=== PATIENT | female | born 1995 | race Caucasian/White ===

== ENCOUNTER 2018-01-20 15:44 | Outpatient (CLI) | payer OTHER, MEDICAID ==
--- NOTE | 2018-01-20 16:28 | Non Stress Test Report ---
Non Stress Test Datetime Report Generated by CPN: 01/20/2018 16:27 DEMOGRAPHIC EGA NST: 40.5 INDICATION Indication for Study: Ordered by Provider MONITORING Monitor Explained: Monitor Explained; Test Explained; Patient Verbalized Understanding Time on Monitor: 01/20/2018 15:59 Time off Monitor: 01/20/2018 16:18 NST Duration: 19 NST INTERVENTIONS NST Interventions: PO Hydration; Meal Given Physician Notified NST: PYovani Soto, CNM BABY A: [id number] BABY A Movement : Present Contraction Frequency : 0 FHR Baseline : 135 Accelerations : 15X15 Decelerations : None Variability : Moderate 6-25bpm NST Review: Meets Criteria for Reactive NST NST Review and Verified By : JESISCA Duke Results: Reactive NST COMMENTS NST Comments: Provider on unit, reviewed strip, d/c order received. NST REPORT Report Trigger: Send Report
== END 2018-01-20 16:29 | disposition home or self-care (01) ==
LOC: LC 15:44
PROVIDERS: ATTEND Obstetrics & Gynecology
PROC: 4A1HXCZ Monitoring of Products of Conception, Cardiac Rate, External Approach (ICD-10-PCS; principal; 2018-01-20)
DX: O48.0 Post-term pregnancy (principal); Z3A.40 40 weeks gestation of pregnancy
CPT/HCPCS: 59025

== ENCOUNTER 2018-01-21 16:07 | Inpatient (IN) | payer OTHER, MEDICAID ==
[2018-01-23] MEDS ORDERED: RINGERS SOLUTION,LACTATED 300 ML IV ONE (06:22)
[2018-01-23] MEDS ORDERED: OXYTOCIN/NORMAL SALINE 20 UNIT/1,000 ML RTUINJ IV PRN ×2 (06:22→18:02)
[2018-01-23] MEDS: RINGERS SOLUTION,LACTATED 1,000 ML IV PRN ×3 (07:03→11:09)
[2018-01-23 07:08] LABS: APPEARANCE,URINE SLIGHTLY-CLOUDY; BILIRUBIN,URINE NEGATIVE (NEGATIVE); COLOR,URINE YELLOW; GLUCOSE, URINE NEGATIVE (NEGATIVE); KETONES,URINE NEGATIVE (NEGATIVE); LEUKOCYTE ESTERASE,URINE TRACE (NEGATIVE); NITRITE,URINE NEGATIVE (NEGATIVE); PROTEIN,URINE NEGATIVE (NEGATIVE); URINE SPECIFIC GRAVITY 1.009; UROBILINOGEN,URINE NEGATIVE mg/dL (<2.0)
[2018-01-23] MEDS ORDERED: OXYTOCIN/NORMAL SALINE 0 UNIT/0 ML RTUINJ ONE (07:28)
[2018-01-23 07:39] LABS: URINE AMPHETAMINES SCREEN NEGATIVE; URINE BARBITURATES SCREEN NEGATIVE; URINE BENZODIAZEPINES SCREEN NEGATIVE; URINE COCAINE SCREEN NEGATIVE; URINE MARIJUANA (THC) SCREEN NEGATIVE; URINE METHADONE SCREEN NEGATIVE; URINE PHENCYCLIDINE SCREEN NEGATIVE
[2018-01-23 08:19] LABS: ABSOLUTE EOSINOPHILS # (AUTO) 0.1 10^3/uL (0.0-0.6); ABSOLUTE LYMPHOCYTES (AUTO) 2.1 10^3/uL (0.5-4.7); ABSOLUTE MONOCYTES (AUTO) 0.5 10^3/uL (0.1-1.4); BASOPHILS % (AUTO) 0.2 % (0-2); EOSINOPHILS % (AUTO) 1.2 % (0-6); HEMATOCRIT 34.7 % (36.0-47.0); LYMPHOCYTES % (AUTO) 21.3 % (13-45); MEAN CORPUSCULAR HEMOGLOBIN 28.9 pg (27.0-33.4); MEAN CORPUSCULAR HGB CONC 34.5 g/dL (32.0-36.0); MEAN CORPUSCULAR VOLUME 84 fl (80-97); MONOCYTES % (AUTO) 5.6 % (3-13); PLATELET COUNT 153 10^3/uL (150-450); RED BLOOD COUNT 4.15 10^6/uL (3.72-5.28); RED CELL DISTRIBUTION WIDTH 13.3 % (11.5-14.0); SEGMENTED NEUTROPHILS % (AUTO) 71.7 % (42-78); TOTAL CELLS COUNTED % (AUTO) 100 %; WHITE BLOOD COUNT 9.8 10^3/uL (4.0-10.5)
[2018-01-23] MEDS ORDERED: PHENYLEPHRINE HCL INJ/PF 10 MG/1 ML SDV ONE ×2 (10:55→13:36)
[2018-01-23] MEDS ORDERED: EPHEDRINE SULFATE INJ 50 MG/1 ML AMPULE ONE ×2 (10:55→13:36)
[2018-01-23] MEDS ORDERED: FENTANYL CITRATE INJ/PF 100 MCG/2 ML AMPUL ONE (10:55)
[2018-01-23] MEDS ORDERED: FENTANYL/BUPIVACAINE/NS/PF 300 MCG/150 ML RTUINJ EPI ONE (10:56)
[2018-01-23] MEDS ORDERED: BUPIVACAINE HCL 0.25 % INJ/PF (2.5 MG/1 ML) 30 ML VIAL ONE (10:56)
[2018-01-23] MEDS ORDERED: ONDANSETRON HCL INJ/PF 4 MG/2 ML SDV ONE ×3 (11:01→15:33)
[2018-01-23] MEDS ORDERED: LIDOCAINE 1.5%/EPINEPHRINE INJ-PF 30 ML SDV ONE (11:11)
[2018-01-23] MEDS ORDERED: ONDANSETRON HCL INJ/PF 4 MG/2 ML SDV IV ONE ×3 (11:26→16:00)
--- NOTE | 2018-01-23 12:02 | Admission Physical ---
Datetime Report Generated by CPN: 01/23/2018 12:01 CURRENT ADMISSION Chief Complaint: Scheduled Induction of Labor Indication for Induction: Post Dates Admit Impression : Term, Intrauterine ; No Active Labor; Intact Membranes; Induction of Labor Admit Plan: Admit to Unit; Initiate Labor Induction Protocol ALLERGIES Medication Allergies: Yes Medication Allergies: cefaclor (01/23/2018) Latex: No Latex Allergies OBSTETRICAL HISTORY EDC: 01/15/2018 00:00 : 1 Para: 0 Term: 0 : 0 SAB: 0 IAB: 0 Ectopic: 0 Livin Cesareans: 0 VBACs: 0 Multiple Births: 0 Gestational Diabetes: No Rh Sensitization: No Incompetent Cervix: No LON: No Infertility: No ART Treatment: No Uterine Anomaly: No IUGR: No Hx Previous C/S: No Macrosomia: No Hx Loss/Stillborn: No PIH: No Hx : No Placenta Previa/Abruption: No Depression/PP Depression: No PTL/PROM: No Post Hemorrhage: No Current Procedures: None Obstetrical History Comments: G1: current SEE RECORDS Alcohol: No Marijuana : No Cocaine: No Other Illicit Drugs: No Cigarettes: Never Smoker. [id number] MEDICAL HISTORY Diabetes: No Blood Transfusion: No Pulmonary Disease (Asthma, TB): No Breast Disease: No Hypertension: No Health Unit Clerk Surgery: No Heart Disease: No Hosp/Surgery: No Autoimmune Disorder: No Anesthetic Complications: No Kidney Disease: No Abnormal Pap Smear: No Neuro/Epilepsy: No Psychiatric Disorders: No Other Medical Diseases: No Hepatitis/Liver Disease: No Significant Family History: No Varicosities/Phlebitis: No Trauma/Violence : No Thyroid Dysfunction: No Medical History Comments: poss hidradinitis type abcess in arimpits and groin in preg got a derm referral INFECTIOUS HISTORY Gonorrhea: No Genital Herpes: No Chlamydia: No Tuberculosis: No Syphilis: No Hepatitis: No HIV/AIDS Exposure: No Rash or Viral Illness: No HPV: No PHYSICAL EXAM General: Normal HEENT: Normal Neurologic: Normal Thyroid: Deferred Heart: Normal Lungs: Normal Breast: Deferred Back: Normal Abdomen: Normal Genitourinary Exam: Normal Extremities: Normal DTRs: Normal Pelvic Type: Adequate Physical Exam Comments: Vulvar and axillary folliculitis - c/w hydradinitis suprativa. No e/o HSV lesions. Vital Signs: Reviewed VAGINAL EXAM Dilatation: 3-4 Effacement: 80 Station: -2 Contraction Comments: rare MEMBRANES Membranes: Intact FETUS A EGA: 41.1 Monitoring: External US FHR- Baseline: 135 Variability: Moderate 6-25bpm Accelerations: 15X15 Decelerations: None FHR Category: Category I Presentation: Vertex Admit Comment: 22yo at 41+1ega presents for IOL (was supposed to be induced on Wednesday but delayed due to staffing). Patient had a reactive NST on Wednesday and r/b/a reviewed and patient desired to delay IOL to Wednesday (offered Sat am IOL if available). Pt has a history of HSV titers positive - however has never had an outbreak and does not have one currently. Pt however has been taking prophylaxis with valacyclovir in case. GBS negative. Pt's father CF carrier - patient is neg for CF. Pt has a 1/2 brother (mom's side) with T18 - negative Carlos. Rh negative - received Rhogam in . No change in cervix since wednesday. Will begin pitocin for IOL. Pt desires epidural at some point for pain control. Anticipate . R/B/A IOl reviewed. [facility] 5#16oz on 12/22/2017 PLANS FOR LABOR AND DELIVERY Labor and Delivery: None Pain Management: Epidural Feeding Preference: Breast Benefit of Breast Feed Discussed: Yes Circumcision: N/A INFORMED CONSENT Informed Consent Obtained: Vaginal Delivery; Induction of Labor; Risks, Benefits and Alternatives Discussed Signature: with User ID: [email or web address]
--- NOTE | 2018-01-23 12:04 | L&D Progress Notes ---
PROGRESS NOTES Datetime Report Generated by CPN: 01/23/2018 12:04 PROGRESS NOTE Impression: Normal Progression of Labor; Reassuring Heart Rate; Rupture of Membranes Procedures: Artificial ROM; Sterile Vag Exam Plan: Continue Present Management; Induction; Anesthesia Consult Informed Consent Obtained: Vaginal Delivery; Induction of Labor; Risks, Benefits and Alternatives Discussed Informed Consent Obtained: Vaginal Delivery; Induction of Labor; Risks, Benefits and Alternatives Discussed Comment: Bulging bag. Pt with increased pain and desires epidural. Anesthesia consult placed. AROM with clear fluid noted. Continue with IOL. Anticipate . VAGINAL EXAM Dilatation: 3-4 Dilatation: 3 Effacement: 80 Effacement: 80 Station: -2 Station: -2 Contractions: q 3 Contractions: rare MEMBRANES Membranes: Ruptured Membranes: Intact Amniotic Fluid Color: Clear FETUS A FHR - Baseline: 135 Monitoring: External US Variability: Moderate 6-25bpm Accelerations: 15X15 Decelerations: None FHR Category: Category I Presentation: Vertex SIGNATURE SIGNATURE: [id number];[id number];[id number] SIGNATURE: [id number];[id number] SIGNATURE: [id number] SIGNATURE: [id number] Signature: with User ID: [email or web address]
[2018-01-23] MEDS ORDERED: MISOPROSTOL 0.2 MG TABLET ONE (16:31)
[2018-01-23] MEDS ORDERED: LIDOCAINE 1% INJ-PF (10 MG/ML) 30 ML SDV ONE (16:32)
[2018-01-23] MEDS ORDERED: OXYTOCIN/NORMAL SALINE 20 UNIT/1,000 ML RTUINJ ONE (16:32)
[2018-01-23] MEDS ORDERED: PROMETHAZINE HCL INJ 25 MG/1 ML VIAL IV PRN (18:02)
[2018-01-23] MEDS ORDERED: DIBUCAINE 1% OINTMENT 28 GM TP PRN (18:02)
[2018-01-23] MEDS ORDERED: PROMETHAZINE HCL 25 MG TABLET PO PRN (18:02)
[2018-01-23] MEDS ORDERED: ACETAMINOPHEN WITH CODEINE #3 TABLET PO PRN (18:02)
[2018-01-23] MEDS ORDERED: ACETAMINOPHEN 325 MG TABLET PO PRN (18:02)
[2018-01-23] MEDS ORDERED: MAGNESIUM HYDROXIDE SUSP 30 ML UDCUP PO PRN (18:02)
[2018-01-23] MEDS ORDERED: GLYCERIN/WITCH HAZEL LEAF 1 EACH MED..PAD TP PRN (18:02)
[2018-01-23] MEDS ORDERED: DIPH/PERTUSS(ACELL)/TETANUS VAC/PF 0.5 ML SYR (>=10YO) IM PRN (18:02)
[2018-01-23] MEDS ORDERED: NA PHOS,M-B/NA PHOS,DI-BA (ADULT) 133 ML ENEMA PR PRN (18:02)
[2018-01-23] MEDS ORDERED: ZOLPIDEM TARTRATE 5 MG TABLET PO PRN (18:02)
[2018-01-23] MEDS ORDERED: MEASLES,MUMPS&RUBELLA VACC/PF 0.5 ML VIAL SUBCUT PRN (18:02)
[2018-01-23] MEDS ORDERED: PROMETHAZINE HCL 25 MG SUPP.RECT PR PRN (18:02)
[2018-01-23] MEDS ORDERED: BENZOCAINE/MENTHOL AEROSOL SPRAY 56 ML TOP PRN (18:02)
[2018-01-23] MEDS ORDERED: PSEUDOEPHEDRINE HCL 30 MG TABLET PO PRN (18:02)
[2018-01-23] MEDS ORDERED: DIPHENHYDRAMINE HCL 25 MG CAPSULE PO PRN (18:02)
[2018-01-23] MEDS ORDERED: IBUPROFEN 800 MG TABLET ONE (19:54)
[2018-01-23] MEDS ORDERED: BENZOCAINE/MENTHOL AEROSOL SPRAY 56 ML ONE (19:54)
[2018-01-23] MEDS: IBUPROFEN 800 MG TABLET PO SCH (20:03)
--- NOTE | 2018-01-23 21:06 | Delivery Summary ---
Del Sum A-C Datetime Report Generated by CPN: 01/23/2018 21:05 DELIVERY PERSONNEL DELIVERY PERSONNEL: [id number] Delivery Doctor:: Kathleen Matias MD Anesthesiologist:: Meli Winters MD Labor and Delivery Nurse:: Nadia Palencia RNcity editor Nurse:: Ayesha Dougherty RN Diabetic Educator/FOOTBALL COACH: Shikha King, DETECTIVE HOMICIDE [place] MATERNAL INFORMATION Delivery Anesthesia: Epidural Medications After Delivery: Pitocin Drip 20 Units/1000ml NSS Estimated Blood Loss (ml): 157 Maternal Complications: None Provider Comments: VFI delivered in JORGE presentation. Tight nuchal cord delivered through. Terminal meconium noted. Shoulders and body delivered without difficulty. Cord doubly clamped and cut and infant to maternal abdomen for NRP. Placent delivered spontaneously intact. FF at U. lacerations repaired for hemostasis. Good hemostasis noted. Mother and baby stable upon the provider leaving the room. LABOR SUMMARY EDC: 01/15/2018 00:00 No. Babies in Womb: 1 Attempted: No Labor Anesthesia: Epidural LABOR INFORMATION Reason for Induction: Post Dates Onset of Labor: 01/23/2018 12:04 Complete Dilatation: 01/23/2018 16:41 Oxytocin: Induction Group B Beta Strep: Negative Antibiotics # of Doses: n/a Antibiotics Time of Last Dose: n/a Steroids Given: None Reason Steroids Not Administered: Not Applicable MEMBRANES Membranes Rupture Method: Artificial Rupture of Membranes: 01/23/2018 10:51 Length of Rupture (hr): 6.83 Amniotic Fluid Color: Clear Amniotic Fluid Amount: Small Amniotic Fluid Odor: Normal STAGES OF LABOR Stage 1 hr: 4 Stage 1 min: 37 Stage 2 hr: 1 Stage 2 min: 0 Stage 3 hr: 0 Stage 3 min: 3 Total Time in Labor hr: 5 Total Time in Labor min: 40 VAGINAL DELIVERY Episiotomy: None Laceration #1: Vaginal Laceration Extension #1: First Degree Laceration Repair: Yes Laceration Repair Note: 1st degree midline and periclitoral laceration repaired for hemostasis. Sponge Count Correct: Yes Sharps Count Correct: Yes CSECTION DELIVERY Primary Indication: N/A Secondary Indication: N/A CSection Incidence: N/A Labor: N/A Elective: N/A CSection Incision: N/A BABY A INFORMATION Delivery Date/Time: 01/23/2018 17:41 Method of Delivery: Vaginal Born in Route : No : N/A Forceps: N/A (Annotations: Data stored by CPN on behalf of user) Vacuum Extraction: N/A (Annotations: Data stored by [facility] on behalf of user) Shoulder Dystocia : No PRESENTATION/POSITION BABY A Presentation: Cephalic Cephalic Presentation: Vertex (Annotations: Data stored by [facility] on behalf of user) Vertex Position: Left Occipital Anterior Breech Presentation: N/A PLACENTA INFORMATION BABY A Placenta Delivery Time : 01/23/2018 17:44 Placenta Method of Delivery: Spontaneous Placenta Status: Delivered SCORES BABY A Heart Rate 1 min: >100 bpm Resp Effort 1 min: Good Cry Reflex Irritability 1 min: Cough or Sneeze or Pulls Away Muscle Tone 1 min: Active Motion Color 1 min: Blue/Pale Resuscitation Effort 1 min: Tactile Stimulation SCORE 1 MIN: 8 Heart Rate 5 min: >100 bpm Resp Effort 5 min: Good Cry Reflex Irritability 5 min: Cough or Sneeze or Pulls Away Muscle Tone 5 min: Active Motion Color 5 min: Body [place], Extremities Blue Resuscitation Effort 5 min: N/A SCORE 5 MIN: 9 INFANT INFORMATION BABY A Gestational Age at Delivery: 41.1 Gestational Status: Late Term- 41- 41.6 Weeks Infant Outcome : Liveborn (Annotations: Data stored by [facility] on behalf of user) Condition : Stable Infant Sex: Female IDENTIFICATION BABY A Infant Verification Date/Time: 01/23/2018 18:23 ID Band Number: [id number] Mother's Name Verified: Yes Infant RN Verifying : Mónica Moreira JESSICA Additional Verifying Personnel: Ishaan Palencia RN WEIGHT/LENGTH BABY A Birthweight (gm): 3070 Infant Weight (lb): 6 Weight (oz): 12 Length (in): 20.50 Infant Length (cm): 52.07 CORD INFORMATION BABY A No. Cord Vessels: 3 (Annotations: Data stored by [facility] on behalf of user) Nuchal Cord : Around Neck x1, Tight Cord Blood Taken: Yes-For Eval (Mom's Blood Type - or O+) Infant Suction: Mouth ASSESSMENT BABY A Infant Complications: Multiple Variable Decels Infant Complications- Other: terminal meconium Physical Findings at Delivery: Caput Succedaneum Skin to Skin: Yes Skin to Skin Time (min): 30 [employer] Dean/ALS Called : No Care By: Kenisha Dougherty RN Transferred To: Remains with Mother BABY B INFORMATION : N/A SIGNATURES Signature: with User ID: [email or web address]
[2018-01-24] MEDS: ACETAMINOPHEN WITH CODEINE #3 TABLET PO PRN ×2 (02:37→19:14)
[2018-01-24] MEDS: IBUPROFEN 800 MG TABLET PO SCH ×3 (05:14→21:36)
[2018-01-24 08:30] LABS: HEMATOCRIT 22.1 % (36.0-47.0); MEAN CORPUSCULAR HEMOGLOBIN 28.9 pg (27.0-33.4); MEAN CORPUSCULAR HGB CONC 34.5 g/dL (32.0-36.0); MEAN CORPUSCULAR VOLUME 84 fl (80-97); PLATELET COUNT 124 10^3/uL (150-450); RED BLOOD COUNT 2.64 10^6/uL (3.72-5.28); RED CELL DISTRIBUTION WIDTH 13.5 % (11.5-14.0); WHITE BLOOD COUNT 12.9 10^3/uL (4.0-10.5)
[2018-01-24 08:32] LABS: HEMOGLOBIN 7.6 g/dL (12.0-15.5)
[2018-01-24] MEDS: FAMOTIDINE 20 MG TABLET PO SCH ×3 (09:46→21:36)
--- NOTE | 2018-01-24 10:34 | PDOC PROGRESS REPORT ---
Subjective-OB Progress Note for:: 01/24/18 Subjective: Doing well, no c/o, fob in room, baby getting a hearing test, tolerating low hgb , voiding,ambulating Physical Exam (OB) Vital Signs: Temp Pulse Resp BP Pulse Ox 98.4 F 94 17 127/62 H 100 01/24/18 07:51 01/24/18 09:07 01/24/18 07:51 01/24/18 09:07 01/24/18 09:07 Intake & Output 01/23/18 01/24/18 01/25/18 06:59 06:59 06:59 Weight 88 kg - Lochia Lochia Amount: Scant < 10 ml Lochia Color: Rubra/Red - Abdomen Description: Soft, Flat Hernia Present: No Fundal Description: Firm, Midline Fundal Height: u/u - u/2 Objective-Diagnostic Laboratory: 01/24/18 07:24 01/24/18 01/24/18 07:24 07:24 WBC 12.9 H RBC 2.64 L Hgb 7.6 L D Hct 22.1 L MCV 84 MCH 28.9 MCHC 34.5 RDW 13.5 Plt Count 124 L Blood Type B NEGATIVE Assessment and Plan(PN) - Assessment and Plan (1) Obstetrical laceration, first degree Is this a current diagnosis for this admission?: Yes (2) Vaginal delivery Is this a current diagnosis for this admission?: Yes (3) Post term at 41 weeks gestation Is this a current diagnosis for this admission?: Yes - Time Spent with Patient Time with patient: Less than 15 minutes Medications reviewed and adjusted accordingly: Yes
[2018-01-24] MEDS: PRENATAL VITAMIN W DHA CAPSULE PO SCH (10:38)
[2018-01-24] MEDS: FERROUS SULFATE 325 MG TABLET PO SCH ×2 (10:38→18:29)
[2018-01-24] MEDS: SENNOSIDES/DOCUSATE 8.6-50 MG 1 EACH TABLET PO SCH (10:39)
[2018-01-24] MEDS: DOCUSATE SODIUM 100 MG CAPSULE PO SCH ×2 (10:39→18:29)
[2018-01-25] MEDS: IBUPROFEN 800 MG TABLET PO SCH (07:40)
[2018-01-25 08:58] VITALS: BP 119/69
[2018-01-25] MEDS: DOCUSATE SODIUM 100 MG CAPSULE PO SCH (09:50)
[2018-01-25] MEDS: SENNOSIDES/DOCUSATE 8.6-50 MG 1 EACH TABLET PO SCH (09:50)
[2018-01-25] MEDS: FAMOTIDINE 20 MG TABLET PO SCH (09:50)
[2018-01-25] MEDS: PRENATAL VITAMIN W DHA CAPSULE PO SCH (09:50)
[2018-01-25] MEDS: FERROUS SULFATE 325 MG TABLET PO SCH (09:50)
--- NOTE | 2018-01-25 09:51 | PDOC DISCHARGE SUMMARY ---
Final Diagnosis Discharge Date: 01/25/18 Discharge Data - Discharge Medication Prescriptions: Docusate Sodium [Colace 100 mg Capsule] 100 mg PO BID #60 capsule Ferrous Sulfate [Feosol 325 mg Tablet] 325 mg PO BID #60 tablet Ibuprofen [Motrin 800 mg Tablet] 800 mg PO Q8 #60 tablet Home Medications: Cholecalciferol (Vitamin D3) [Vitamin D3] 1,000 unit PO DAILY 01/20/18 Vit/Iron Fum/Folic AC [ Tablet] 1 each PO DAILY 01/20/18 Docusate Sodium [Colace 100 mg Capsule] 100 mg PO BID #60 capsule 01/25/18 Ferrous Sulfate [Feosol 325 mg Tablet] 325 mg PO BID #60 tablet 01/25/18 Ibuprofen [Motrin 800 mg Tablet] 800 mg PO Q8 #60 tablet 01/25/18 Gestational Age: 41.1 Reason(s) for Admission: Induction of Labor Procedures: NST Intrapartum Procedure(s): Spontaneous Vaginal Delivery Complication(s): Laceration-Periurethral Laceration-Degree: 1st - [place] Data Baby 1 Female at 1 minute: 8 at 5 minutes: 9 Weight: 3070 kg Home with Mother: Yes Complications: No - Diagnosis Test Laboratory: Temp Pulse Resp BP Pulse Ox 98.1 F 81 20 119/69 100 01/25/18 08:00 01/25/18 08:00 01/25/18 08:00 01/25/18 08:00 01/25/18 08:00 01/23/18 01/23/18 01/24/18 06:30 07:23 07:24 RBC 4.15 2.64 L Hgb 12.0 7.6 L D Hct 34.7 L 22.1 L Urine Opiates Screen NEGATIVE - Discharge information/Instructions Discharge Activity: Activity As Tolerated, Pelvic Rest, No tub bath Discharge Diet: Regular Disposition: HOME, SELF-CARE Follow up with: [facility] in: 4, Weeks
== END 2018-01-25 12:28 | disposition home or self-care (01) | DRG 775 ==
LOC: LR 01-23 06:17 → 2S 01-23 21:14
PROVIDERS: ADMIT Student in an Organized Health Care Education/Training Program; ATTEND Student in an Organized Health Care Education/Training Program
PROC: 10E0XZZ Delivery of Products of Conception, External Approach (ICD-10-PCS; principal; 2018-01-23)
PROC: 0HQ9XZZ Repair Perineum Skin, External Approach (ICD-10-PCS; 2018-01-23)
PROC: 4A1HXCZ Monitoring of Products of Conception, Cardiac Rate, External Approach (ICD-10-PCS; 2018-01-23)
PROC: 3E0234Z Introduction of Serum, Toxoid and Vaccine into Muscle, Percutaneous Approach (ICD-10-PCS; 2018-01-24)
DX: O77.0 Labor and delivery complicated by meconium in amniotic fluid (principal); O48.0 Post-term pregnancy; O99.72 Diseases of the skin and subcutaneous tissue complicating childbirth; L73.2 Hidradenitis suppurativa; O76 Abnormality in fetal heart rate and rhythm complicating labor and delivery; O69.81X0 Labor and delivery complicated by cord around neck, without compression, not applicable or unspecified; O26.893 Other specified pregnancy related conditions, third trimester; O70.0 First degree perineal laceration during delivery; Z3A.41 41 weeks gestation of pregnancy; Z37.0 Single live birth; Z86.19 Personal history of other infectious and parasitic diseases
CPT/HCPCS: 36415; 80307; 81005; 85025; 85027; 85461; 86592; 86850; 86900; 86901; 94760; J2370; J2405; J2590; J2790; J3010; J3490

== ENCOUNTER 2018-01-21 16:37 | Outpatient (CLI) | payer OTHER, MEDICAID ==
[2018-01-21 17:07] LABS: APPEARANCE,URINE CLOUDY; BILIRUBIN,URINE NEGATIVE (NEGATIVE); COLOR,URINE YELLOW; GLUCOSE, URINE NEGATIVE (NEGATIVE); KETONES,URINE NEGATIVE (NEGATIVE); LEUKOCYTE ESTERASE,URINE MODERATE (NEGATIVE); NITRITE,URINE NEGATIVE (NEGATIVE); PROTEIN,URINE NEGATIVE (NEGATIVE); URINE SPECIFIC GRAVITY 1.011; UROBILINOGEN,URINE NEGATIVE mg/dL (<2.0)
[2018-01-21 17:27] LABS: URINE AMPHETAMINES SCREEN NEGATIVE; URINE BARBITURATES SCREEN NEGATIVE; URINE BENZODIAZEPINES SCREEN NEGATIVE; URINE COCAINE SCREEN NEGATIVE; URINE MARIJUANA (THC) SCREEN NEGATIVE; URINE METHADONE SCREEN NEGATIVE; URINE PHENCYCLIDINE SCREEN NEGATIVE
--- NOTE | 2018-01-21 22:49 | Non Stress Test Report ---
Non Stress Test Datetime Report Generated by CPN: 01/21/2018 22:49 DEMOGRAPHIC Test Number: 3 EGA NST: 40.6 INDICATION Indication for Study: Other Indication for Study (NST) Other: Labor Check MONITORING Monitor Explained: Monitor Explained; Test Explained; Patient Verbalized Understanding Time on Monitor: 01/21/2018 16:49 Time off Monitor: 01/21/2018 22:03 NST Duration: 314 NST INTERVENTIONS NST Interventions: PO Hydration; Reposition Patient Physician Notified NST: Dr. Matias BABY A: [id number] BABY A Movement : Present Contraction Frequency : 0 FHR Baseline : 125 Accelerations : 15X15 Variability : Moderate 6-25bpm NST Review: Meets Criteria for Reactive NST NST Review and Verified By : Henry Salas RN NST Results: Reactive NST REPORT Report Trigger: Send Report
== END 2018-01-21 22:15 | disposition home or self-care (01) ==
LOC: LC 16:37
PROVIDERS: ATTEND Student in an Organized Health Care Education/Training Program
PROC: 4A1HXCZ Monitoring of Products of Conception, Cardiac Rate, External Approach (ICD-10-PCS; principal; 2018-01-21)
DX: O47.1 False labor at or after 37 completed weeks of gestation (principal); Z3A.40 40 weeks gestation of pregnancy
CPT/HCPCS: 59025; 80307; 81005

== ENCOUNTER 2019-05-20 14:54 | Emergency (ER) | payer OTHER, MEDICAID ==
[2019-05-20 15:04] VITALS: BP 112/75
[2019-05-20] MEDS ORDERED: IBUPROFEN 800 MG TABLET PO ONE (15:08)
[2019-05-20] MEDS ORDERED: ONDANSETRON 4 MG TAB.RAPDIS PO ONE (15:10)
--- NOTE | 2019-05-20 15:14 | ER Document Report ---
ED Head/Face/Scalp Injury - General Chief Complaint: Head Injury Stated Complaint: HEAD INJURY Time Seen by Provider: 05/20/19 15:07 Primary Care Provider: STEPHANIE HOLLOWAY MD [Primary Care Provider] - Follow up as needed Mode of Arrival: Ambulatory Information source: Patient Notes: 23-year-old female presented to ED for head injury. She states the management of her head off of the top shelf. She denies any loss of consciousness, nausea vomiting, any neurological symptoms. Patient is alert oriented respirations regular and unlabored speaking in full sentences. There is a very small puncture hole to the top of the head. She is alert oriented pupils equal and react to light and no neurological symptoms. TRAVEL OUTSIDE OF THE [place] IN LAST 30 DAYS: No - HPI Patient complains to provider of: Contusion - Small puncture wound to the top of her skull, Injury, Pain Injury to: Head Location of problem: Head Occurred: Just prior to arrival - [place] Where: Work Context: Bleeding, Other - Mannequin fell on her head Loss consciousness: No loss of consciousness Remembers: Injury - Related Data Allergies/Adverse Reactions: cefaclor [From Ceclor] Allergy (Verified 01/23/18 06:34) Past Medical History - General Information source: Patient - Social History Smoking Status: Never Smoker Frequency of alcohol use: None Drug Abuse: None Occupation: [employer] [place] [employer] Lives with: Spouse/Significant other Family History: None Patient has suicidal ideation: No Patient has homicidal ideation: No - Past Medical History Cardiac Medical History: Reports: None Pulmonary Medical History: Reports: None EENT Medical History: Reports: None Neurological Medical History: Reports: None Endocrine Medical History: Reports: None Renal/ Medical History: Reports: None Malignancy Medical History: Reports: None GI Medical History: Reports: None Musculoskeletal Medical History: Reports None Skin Medical History: Reports None Psychiatric Medical History: Reports: None Traumatic Medical History: Reports: None Infectious Medical History: Reports: None Past Surgical History: Reports: Hx Adenoidectomy, Hx Tonsillectomy - adenoids removed only - Immunizations Hx Diphtheria, Pertussis, Tetanus Vaccination: Yes Review of Systems - Review of Systems Constitutional: No symptoms reported EENT: No symptoms reported Cardiovascular: No symptoms reported Respiratory: No symptoms reported Gastrointestinal: No symptoms reported Genitourinary: No symptoms reported Female Genitourinary: No symptoms reported Musculoskeletal: No symptoms reported Skin: Other - Puncture wound top of the head Hematologic/Lymphatic: No symptoms reported Neurological/Psychological: Headaches -: Yes All other systems reviewed and negative Physical Exam - Vital signs Vitals: Temp Pulse Resp BP Pulse Ox 98.4 F 95 16 112/75 98 05/20/19 15:03 05/20/19 15:03 05/20/19 15:03 05/20/19 15:03 05/20/19 15:03 Interpretation: Normal - General General appearance: Appears well, Alert - HEENT Head: Normocephalic, Atraumatic Eyes: Normal Pupils: PERRL - Respiratory Respiratory status: No respiratory distress Chest status: Nontender Breath sounds: Normal Chest palpation: Normal - Cardiovascular Rhythm: Regular Heart sounds: Normal auscultation Murmur: No - Abdominal Inspection: Normal Distension: No distension Bowel sounds: Normal Tenderness: Nontender Organomegaly: No organomegaly - Back Back: Normal, Nontender - Extremities General upper extremity: Normal inspection, Nontender, Normal color, Normal ROM, Normal temperature General lower extremity: Normal inspection, Nontender, Normal color, Normal ROM, Normal temperature, Normal weight bearing. No: Dar's sign - Neurological Neuro grossly intact: Yes Cognition: Normal Orientation: AAOx4 [place] Coma Scale Eye Opening: Spontaneous [place] Coma Scale Verbal: Oriented [place] Coma Scale Motor: Obeys Commands [place] Coma Scale Total: 15 Speech: Normal Cranial nerves: Normal Cerebellar coordination: Normal Motor strength normal: LUE, RUE, LLE, RLE Additional motor exam normals: Equal mortgage loan reviewer Babinski reflex: Normal (flexor plantar) Sensory: Normal Biceps - Reflex grade: 2 = Normal Triceps - Reflex grade: 2 = Normal Brachioradialis - Reflex grade: 2 = Normal Knee - Reflex grade: 2 = Normal Ankle - Reflex grade: 2 = Normal - Psychological Associated symptoms: Normal affect, Normal mood - Skin Skin Temperature: Warm Skin Moisture: Dry Skin Color: Normal Location of irregularity: Scalp Character of irregularity: Other Irregularity with: Swelling - Small puncture wound, Tenderness Course - Re-evaluation Re-evalutation: 05/20/19 15:26 Head injury precautions discussed with patient and mother. Mother is a registered nurse. Patient was discharged home with instructions when to return to the ED when to call the doctor. Patient was discharged home. - Vital Signs Vital signs: Temp Pulse Resp BP Pulse Ox 98.4 F 95 16 112/75 98 05/20/19 15:03 05/20/19 15:03 05/20/19 15:03 05/20/19 15:03 05/20/19 15:03 Discharge - Discharge Clinical Impression: Head injury Qualifiers: Encounter type: initial encounter Qualified Code(s): S09.90XA - Unspecified injury of head, initial encounter Condition: Stable Disposition: HOME, SELF-CARE Additional Instructions: Head Injury Precautions At this point, there is no evidence that your head injury is serious. Observation is necessary, however. Take only clear liquids for the first few hours, unless told otherwise by the doctor. If no pain medication was prescribed, you may take acetaminophen according to the directions on the bottle. Do not take any medication that may alter your level of alertness (unless you've discussed it with the doctor first). Limit activity for the first 24 hours. Bed rest is best. During the first 24 hours, check to see approximately every two to three hours that the patient is easily arousable, responds normally, and can perform common tasks such as walking without difficulty. Contact your doctor or go to the hospital if any of the following things occur: Persistent vomiting, difficulty in arousing the patient, worsening or continued headache, or failure to improve as expected. Head injuries can cause symptoms that persist for a few days or even a few weeks. Ibuprofen Ibuprofen is an excellent, safe drug for pain control. In addition, it has potent antiinflammatory effects which are beneficial, especially in the treatment of injuries, arthritis, or tendonitis. It's best to take ibuprofen with food. Persons with ulcer disease or allergy to aspirin should notify their physician of this before taking ibuprofen. Take the medication exactly as prescribed. Don't take additional doses unless instructed to do so by your doctor. If you develop wheezing, shortness of breath, hives, faintness, stomach pain, vomiting, or dark black stools, return for re-evaluation at once. Antinausea Medication You have been given a medication to suppress nausea and vomiting. This type of medication can be given as a shot, pill, or suppository. It will usually last for many hours. Pills and shots usually last six to eight hours, suppositories last about 12 hours. For the typical illness, only one or two doses of the medication may be necessary. Mild lightheadedness may occur. This type of medicine can cause drowsiness. Do not drive or operate dangerous machinery while under its influence. Do not mix with alcohol. See your doctor at once if you have muscle spasms or tightness, or uncontrollable motions (particularly of the neck, mouth, or jaw). Persistent vo miting or severe lightheadedness should also be evaluated by the physician. FOLLOW-UP CARE: If you have been referred to a physician for follow-up care, call the physicians office for an appointment as you were instructed or within the next two days. If you experience worsening or a significant change in your symptoms, notify the physician immediately or return to the Emergency Department at any time for re-evaluation. Forms: Return to Work Referrals: STEPHANIE HOLLOWAY MD [Primary Care Provider] - Follow up in 3-5 days
== END 2019-05-20 15:22 | disposition home or self-care (01) ==
LOC: ER 14:54
DX: S01.03XA Puncture wound without foreign body of scalp, initial encounter (principal); W20.8XXA Other cause of strike by thrown, projected or falling object, initial encounter; Y92.512 Supermarket, store or market as the place of occurrence of the external cause; Y99.0 Civilian activity done for income or pay; Z88.1 Allergy status to other antibiotic agents
CPT/HCPCS: 99283; S0119